=== PATIENT | female | born 1980 | race Caucasian/White ===

== ENCOUNTER 2016-05-14 11:03 | Outpatient (CLI) | payer MEDICAID | END 2016-05-14 11:04 | DX: L02.91 Cutaneous abscess, unspecified (principal) ==

== ENCOUNTER 2016-12-06 10:17 | Emergency (ER) | payer MEDICAID, OTHER ==
[2016-12-06] MEDS ORDERED: SODIUM CHLORIDE 0.9% 1,000 ML IV ONE ×3 (11:36→14:07)
[2016-12-06] MEDS ORDERED: ONDANSETRON 4 MG/2 ML VIAL IVP STA (11:36)
[2016-12-06 11:51] LABS: BASOPHILS % (AUTO) 0.6 %; EOSINOPHILS % (AUTO) 0.1 %; HCT - HEMATOCRIT 39.6 % (37.0-47.0); HGB - HEMOGLOBIN 13.6 g/dL (12.0-16.0); LYMPHOCYTES % (AUTO) 14.9 %; MEAN CORPUSCULAR HEMOGLOBIN 30.1 pg (27.0-31.0); MEAN CORPUSCULAR HGB CONC 34.5 g/dL (32.0-36.0); MEAN CORPUSCULAR VOLUME 87.3 fL (81.0-99.0); MEAN PLATELET VOLUME 7.2 fL (7.9-10.8); MONOCYTES # (AUTO) 0.2 10^3/uL (0.0-1.0); NEUTROPHILS # (AUTO) 5.5 10^3/uL (1.5-6.6); NEUTROPHILS % (AUTO) 81.4 %; RED BLOOD COUNT 4.54 10^6/uL (4.20-5.40); RED CELL DISTRIBUTION WIDTH 13.7 % (12.0-15.0); UNCORRECTED WHITE BLOOD COUNT 6.7 x10^3/uL; WHITE BLOOD COUNT 6.7 x10^3/uL (4.8-10.8)
[2016-12-06] MEDS ORDERED: ONDANSETRON 4 MG/2 ML VIAL ONE (11:51)
[2016-12-06] MEDS ORDERED: SODIUM CHLORIDE FLUSH 0.9% 10 ML SYRINGE IVP ONE ×2 (11:52→12:28)
[2016-12-06] MEDS ORDERED: HYDROmorphone 1 MG/ML CARPUJECT IVP STA (11:59)
[2016-12-06 12:06] LABS: ALBUMIN/GLOBULIN RATIO 1.9 (1.0-2.2); BILIRUBIN,TOTAL 1.6 mg/dL (0.2-1.0); CALCIUM 9.5 mg/dL (8.5-10.3); CREATININE 0.8 mg/dL (0.4-1.0); POTASSIUM 3.8 mmol/L (3.5-5.0); TOTAL PROTEIN 7.3 g/dL (6.7-8.2)
[2016-12-06] MEDS ORDERED: HYDROmorphone 1 MG/ML SYRINGE ONE (12:27)
[2016-12-06 12:31] VITALS: BP 109/58
[2016-12-06] MEDS ORDERED: PROMETHAZINE INJ 12.5 MG in SODIUM CHLORIDE 0.9% 50 ML IV STA (12:43)
[2016-12-06] MEDS ORDERED: PROMETHAZINE 25 MG/1 ML VIAL ONE (12:50)
[2016-12-06 14:43] LABS: BILIRUBIN,URINE NEGATIVE (NEGATIVE)
[2016-12-06 14:44] LABS: HCG UR QUAL NEGATIVE; UA w/ MICROSCOPIC CHARGE YES
[2016-12-06 14:48] LABS: UR CULTURE IF IND NOT INDICATED
--- NOTE | 2016-12-06 15:24 | ED Physician Documentation ---
PD HPI ABD PAIN - Stated complaint Stated Complaint: VOMITING - Chief complaint Chief Complaint: Abd Pain - History obtained from History obtained from: Patient - History of Present Illness Timing - onset: Last night Timing - details: Still present Quality: Cramping Location: All over / everywhere Associated symptoms: Nausea, Vomiting, Diarrhea Similar symptoms before: Has not had sx before - Additional information Additional information: The patient is an otherwise healthy 35-year-old female who presents with cramping abdominal pain, vomiting, and diarrhea. She was at a concert in [place] last night when she drank from an open container that had been offered her by another concert goer. About 15 minutes later she became diaphoretic and passed out. Since that time she has had generalized abdominal cramping pain, multiple episodes of vomiting, and diarrhea 2. She also reports headache and decreased urine output. Her last menstrual period was one week ago and was normal. She denies history of similar symptoms in the past. She has had no abdominal surgery. Review of Systems Constitutional: reports: Myalgias. denies: Fever Eyes: denies: Irritation Ears: denies: Tinnitus/ringing Nose: denies: Congestion Throat: denies: Sore throat Cardiac: denies: Chest pain / pressure Respiratory: denies: Dyspnea, Cough GI: reports: Abdominal Pain, Nausea, Vomiting, Diarrhea : denies: Dysuria Skin: denies: Rash Musculoskeletal: reports: Neck pain Neurologic: reports: Headache. denies: Focal weakness, Numbness PD PAST MEDICAL HISTORY - Past Medical History Past Medical History: No GI: GERD - Past Surgical History Past Surgical History: No - Present Medications Home Medications: Ambulatory Orders Medication Instructions Recorded Confirmed No Known Home Medications [No 12/06/16 12/06/16 Known Home Medications] - Allergies Allergies/Adverse Reactions: Allergies Allergy/AdvReac Type Severity Reaction Status Date / Time No Known Drug Allergies Allergy Verified 04/05/14 10:09 - Social History Does the pt smoke?: No Smoking Status: Never smoker Does the pt drink ETOH?: No Does the pt have substance abuse?: No PD ED PE NORMAL - Vitals Vital signs reviewed: Yes (normal) - General General: Alert and oriented X 3, Well developed/nourished, Other (Appears fatigued.) - HEENT HEENT: Atraumatic, PERRL, EOMI, Ears normal, Moist mucous membranes, Pharynx benign - Neck Neck: Supple, no meningeal sign, No adenopathy, No JVD, Other (There is mild discomfort to palpation along the paracervical musculature, more on the left than the right. There is no meningismus and no tenderness to palpation along the spinous processes.) - Cardiac Cardiac: RRR, No murmur - Respiratory Respiratory: No respiratory distress, Clear bilaterally - Abdomen Abdomen: Normal bowel sounds, Soft, Non distended, No organomegaly, Other (Mild generalized discomfort palpation, without rebound tenderness or guarding.) - Back Back: No CVA TTP - Derm Derm: No rash - Extremities Extremities: No tenderness to palpate, No edema, No calf tenderness / cord - Neuro Neuro: Alert and oriented X 3, No motor deficit, Normal speech Results - Vitals Vitals: Oxygen O2 Source Room air - Labs Labs: Laboratory Tests 12/06/16 12/06/16 12/06/16 11:45 11:45 14:27 WBC 6.7 RBC 4.54 Hgb 13.6 Hct 39.6 MCV 87.3 MCH 30.1 MCHC 34.5 RDW 13.7 Plt Count 238 MPV 7.2 L Neut # 5.5 Lymph # 1.0 L Bulloch # 0.2 Eos # 0.0 Baso # 0.0 Absolute Nucleated RBC 0.00 Nucleated RBC % 0.0 Sodium 138 Potassium 3.8 Chloride 107 Carbon Dioxide 22 Anion Gap 9.0 BUN 13 Creatinine 0.8 Estimated GFR (MDRD) 82 L Glucose 88 Calcium 9.5 Total Bilirubin 1.6 H AST 23 ALT 18 Alkaline Phosphatase 37 L Total Protein 7.3 Albumin 4.8 Globulin 2.5 Albumin/Globulin Ratio 1.9 Lipase 26 Urine Color YELLOW Urine Clarity SL. CLOUDY Urine pH 7.0 Ur Specific Gering 1.020 Urine Protein NEGATIVE Urine Glucose (UA) NEGATIVE Urine Ketones 40 H Urine Occult Blood NEGATIVE Urine Nitrite NEGATIVE Urine Bilirubin NEGATIVE Urine Urobilinogen 0.2 (NORMAL) Ur Leukocyte Esterase TRACE H Urine RBC 3 Urine WBC 4-5 Ur Squamous Epith Cells MANY Squamous H Urine Bacteria Moderate H Ur Microscopic Review INDICATED Urine Culture Comments NOT INDICATED Urine HCG, Qual NEGATIVE PD MEDICAL DECISION MAKING - ED course Complexity details: reviewed results, re-evaluated patient, considered differential, d/w patient ED course: The patient's presentation is significant for abdominal pain, vomiting, and dehydration. The most likely etiology is intolerance to something in a drink that she was given last night. Food poisoning is a consideration. Her presentation does not suggest a surgical abdomen. CBC, chemistry panel and urinalysis are unremarkable. test is negative. Treatment in the emergency department included administration of normal saline 2 L IV, hydromorphone 1 mg IV, and Phenergan 12.5 mg IV. On reevaluation she feels subjectively much improved, and her abdomen is benign to palpation. She demonstrated the ability to drink fluids without recurrent nausea. She is being discharged with a prescription for Phenergan. I discussed with her symptomatic treatment and outpatient follow-up, as well as potentially worrisome signs or symptoms that should prompt reevaluation in the emergency department. Departure - Departure Disposition: 01 Home, Self Care Clinical Impression: Dehydration Vomiting Qualifiers: Vomiting type: unspecified Vomiting Intractability: non-intractable Nausea presence: with nausea Qualified Code(s): R11.2 - Nausea with vomiting, unspecified Abdominal pain Qualifiers: Abdominal location: generalized Qualified Code(s): R10.84 - Generalized abdominal pain Condition: Stable Instructions: ED Abdominal Pain Unkn Cause Comments: Drink plenty of fluids. You can use Phenergan as prescribed if needed for nausea. Follow-up with primary physician within 1 week. Call to schedule appointment. Return to the emergency department if you develop increasing abdominal pain, persistent vomiting, or otherwise worsening symptoms. Discharge Date/Time: 12/06/16 15:47
== END 2016-12-06 15:47 | disposition home or self-care (01) ==
LOC: ED 10:17
DX: R11.2 Nausea with vomiting, unspecified (principal); R10.84 Generalized abdominal pain; E86.0 Dehydration
CPT/HCPCS: 36415; 80053; 81001; 81025; 83690; 85025; 96361; 96365; 96375; 99283; 99284; J1170; J7040; 81003; 87086